=== PATIENT | male | born 1960 | race Caucasian/White ===

== ENCOUNTER 2017-07-28 19:22 | Inpatient (IN) | payer OTHER ==
[~2017-07-28] VITALS: Ht 172.7 cm; Wt 68.8 kg
[2017-07-28] MEDS ORDERED: DARU1TAB PO (19:38)
[2017-07-28] MEDS ORDERED: TAMS0.4C32 PO (19:38)
[2017-07-28] MEDS ORDERED: ACYC200C PO (19:38)
[2017-07-28] MEDS ORDERED: PROP20TA18 PO (19:38)
[2017-07-28] MEDS ORDERED: BUSP10TA23 PO (19:38)
[2017-07-28] MEDS ORDERED: GABA-531 PO (19:38)
[2017-07-28] MEDS ORDERED: TRAZ-147 PO (19:38)
[2017-07-28] MEDS ORDERED: FENO48TA15 PO (19:38)
[2017-07-28] MEDS ORDERED: QUET200T PO (19:38)
[2017-07-28 20:02] LABS: BASOPHILS % (AUTO) 0.6 % (0.0-2.0); EOSINOPHILS % (AUTO) 1.3 % (1.0-6.0); HEMATOCRIT 40.2 % (41-53); HEMOGLOBIN 14.3 g/dL (13.5-17.5); LYMPHOCYTES # (AUTO) 3.1 K/uL (1.0-4.8); LYMPHOCYTES % (AUTO) 27.8 % (22.0-44.0); MEAN CORPUSCULAR HEMOGLOBIN 32.4 pg (26.0-34.0); MEAN CORPUSCULAR HGB CONC 35.6 G/dL (31.0-37.0); MEAN CORPUSCULAR VOLUME 91 fL (80-100); MONOCYTES # (AUTO) 0.6 K/uL (0.1-1.0); MONOCYTES % (AUTO) 4.9 % (2.0-9.0); NEUTROPHILS # (AUTO) 7.4 K/uL (1.8-7.7); NEUTROPHILS % (AUTO) 65.4 % (40.0-70.0); PLATELET COUNT (AUTO) 223 K/uL (150-450); RED BLOOD CELL COUNT(AUTO) 4.42 MIL/uL (4.50-5.90); RED CELL DISTRIBUTION WIDTH 14.5 % (11.5-14.5)
[2017-07-28 20:18] LABS: ANION GAP 8 mmol/L (8-16); CALCIUM, TOTAL 9.2 mg/dL (8.8-10.5); CARBON DIOXIDE 29 mmol/L (22-29); CHLORIDE 104 mmol/L (98-107); CREATININE 1.14 mg/dL (0.60-1.30); GLOMERULAR FILTR. RATE CALC > 60 mL/min (>60); GLUCOSE,RANDOM 90 mg/dL (70-110); POTASSIUM 3.3 mmol/L (3.5-5.1); SODIUM SERUM 141 mmol/L (136-145); UREA NITROGEN, BLOOD 15 mg/dL (7-18)
[2017-07-28 20:20] LABS: AMPHET/METH SCREEN,URINE NEGATIVE (NEGATIVE); BARBITURATE SCREEN, URINE NEGATIVE (NEGATIVE); BENZODIAZEPINES SCREEN,URINE NEGATIVE (NEGATIVE); CANNABINOID SCREEN,URINE POSITIVE (NEGATIVE); COCAINE SCREEN,URINE NEGATIVE (NEGATIVE); METHADONE SCREEN, URINE NEGATIVE (NEGATIVE); OPIATE SCREEN,URINE NEGATIVE (NEGATIVE); PHENCYCLIDINE SCREEN,URINE NEGATIVE (NEGATIVE)
[2017-07-28 20:24] LABS: ALANINE AMINOTRANSFERASE 40 U/L (12-78); ALBUMIN 4.3 g/dL (3.4-5.0); ALKALINE PHOSPHATASE 93 U/L (46-116); ASPARTATE AMINOTRANSFERASE 36 U/L (15-37); BILIRUBIN,TOTAL 0.6 mg/dL (0.1-1.0); TOTAL PROTEIN, SERUM 7.1 g/dL (6.4-8.2)
[2017-07-28] MEDS ORDERED: LORazepam 2 MG TABLET PO PRN (21:15)
[2017-07-28] MEDS ORDERED: HALOPERIDOL 5 MG TABLET PO PRN (21:15)
[2017-07-28] MEDS ORDERED: ZOLPIDEM TARTRATE 10 MG TABLET PO PRN (21:15)
[2017-07-28] MEDS ORDERED: CROF125T PO (21:56)
[2017-07-28] MEDS ORDERED: DiphenhydrAMINE HCL 25 MG CAPSULE PO ONE (22:00)
[2017-07-28] MEDS ORDERED: HALOPERIDOL 5 MG TABLET PO ONE (22:00)
[2017-07-28] MEDS ORDERED: LORazepam 2 MG TABLET PO ONE (22:00)
[2017-07-28] MEDS ORDERED: POTASSIUM CHLORIDE 10% 40 MEQ/30 ML LIQUID UDCUP PO ONE (22:15)
[2017-07-28 22:32] LABS: CHOL/HDL RATIO 5.4 (4.2-7.3); CHOLESTEROL 173 mg/dL (131-200); HDL CHOLESTEROL 32 mg/dL (40-60); LDL CHOL (CALC.) 75 mg/dL (0-130); THYROID STIMULATING HORMONE 1.95 uIU/mL (0.36-3.74); TRIGLYCERIDES 328 mg/dL (15-150)
[2017-07-28 22:40] VITALS: BP 110/72
[2017-07-29 09:09] VITALS: BP 114/77
[2017-07-29] MEDS: QUEtiapine FUMARATE 200 MG TABLET PO SCH ×2 (09:30→20:17)
[2017-07-29] MEDS: BusPIRone HCL 10 MG TABLET PO SCH ×2 (09:30→18:14)
[2017-07-29] MEDS: PROPRANOLOL HCL 20 MG TABLET PO SCH ×2 (09:30→18:14)
[2017-07-29] MEDS: FLUoxetine HCL 20 MG CAPSULE PO SCH (09:30)
[2017-07-29 14:38] VITALS: BP 128/72
[2017-07-29] MEDS ORDERED: ACETAMINOPHEN 325 MG TABLET PO PRN ×2 (18:45)
[2017-07-29] MEDS ORDERED: IBUPROFEN 400 MG TABLET PO PRN (18:45)
[2017-07-29] MEDS ORDERED: POTASSIUM CHLORIDE 20 MEQ ER TABLET PO ONE (18:45)
[2017-07-29 20:12] VITALS: BP 120/71
[2017-07-29] MEDS: TraZODone HCL 100 MG TABLET PO SCH (20:17)
[2017-07-30] MEDS: FLUoxetine HCL 20 MG CAPSULE PO SCH (08:33)
[2017-07-30] MEDS: BusPIRone HCL 10 MG TABLET PO SCH ×3 (08:33→16:18)
[2017-07-30] MEDS: TAMSULOSIN HCL 0.4 MG CAPSULE PO SCH (08:33)
[2017-07-30] MEDS: ACYCLOVIR 200 MG CAPSULE PO SCH ×2 (08:33→16:17)
[2017-07-30] MEDS: PROPRANOLOL HCL 20 MG TABLET PO SCH (08:33)
[2017-07-30] MEDS: QUEtiapine FUMARATE 200 MG TABLET PO SCH ×2 (08:34→20:21)
[2017-07-30] MEDS: FENOFIBRATE 48 MG TABLET PO SCH (08:34)
[2017-07-30] MEDS ORDERED: [UNRECOGNIZED DRUG - OTHER] PO SCH (09:00)
[2017-07-30 09:18] VITALS: BP 129/74
[2017-07-30 16:51] VITALS: BP 119/61
[2017-07-30 17:10] VITALS: BP 122/65
[2017-07-30] MEDS: IBUPROFEN 400 MG TABLET PO PRN (17:10)
[2017-07-30] MEDS ORDERED: LOPERAMIDE HCL 2 MG CAPSULE PO PRN (17:15)
[2017-07-30] MEDS: TraZODone HCL 100 MG TABLET PO SCH (20:21)
[2017-07-31 08:00] VITALS: BP 96/57
[2017-07-31] MEDS: FENOFIBRATE 48 MG TABLET PO SCH (08:59)
[2017-07-31] MEDS: ACYCLOVIR 200 MG CAPSULE PO SCH ×2 (08:59→16:16)
[2017-07-31] MEDS: QUEtiapine FUMARATE 200 MG TABLET PO SCH ×2 (09:00→20:18)
[2017-07-31] MEDS: FLUoxetine HCL 20 MG CAPSULE PO SCH (09:00)
[2017-07-31] MEDS: BusPIRone HCL 10 MG TABLET PO SCH ×3 (09:00→16:16)
[2017-07-31] MEDS: TAMSULOSIN HCL 0.4 MG CAPSULE PO SCH (09:00)
[2017-07-31] MEDS: PROPRANOLOL HCL 20 MG TABLET PO SCH (09:00)
[2017-07-31 13:18] VITALS: BP 113/68
[2017-07-31] MEDS: PREZCOBIX PO SCH (16:15)
[2017-07-31] MEDS: CROFELEMER 125 MG PO SCH (16:15)
[2017-07-31 16:22] VITALS: BP 125/68
[2017-07-31] MEDS: IBUPROFEN 400 MG TABLET PO PRN (16:22)
[2017-07-31 17:37] LABS: GLUCOMETER DEV NAME(LOC) 3EX 1; GLUCOSE,POINT OF CARE 91 MG/DL (70-110)
[2017-07-31] MEDS: TraZODone HCL 100 MG TABLET PO SCH (20:18)
[2017-08-01 05:37] LABS: GLUCOMETER DEV NAME(LOC) 3EI B; GLUCOSE,POINT OF CARE 112 MG/DL (70-110)
[2017-08-01 07:08] LABS: BASOPHILS % (AUTO) 0.4 % (0.0-2.0); EOSINOPHILS % (AUTO) 1.9 % (1.0-6.0); HEMATOCRIT 39.6 % (41-53); HEMOGLOBIN 13.8 g/dL (13.5-17.5); LYMPHOCYTES # (AUTO) 2.4 K/uL (1.0-4.8); LYMPHOCYTES % (AUTO) 33.4 % (22.0-44.0); MEAN CORPUSCULAR HEMOGLOBIN 32.3 pg (26.0-34.0); MEAN CORPUSCULAR HGB CONC 34.8 G/dL (31.0-37.0); MEAN CORPUSCULAR VOLUME 93 fL (80-100); MONOCYTES # (AUTO) 0.5 K/uL (0.1-1.0); MONOCYTES % (AUTO) 6.8 % (2.0-9.0); NEUTROPHILS # (AUTO) 4.2 K/uL (1.8-7.7); NEUTROPHILS % (AUTO) 57.5 % (40.0-70.0); PLATELET COUNT (AUTO) 181 K/uL (150-450); RED BLOOD CELL COUNT(AUTO) 4.26 MIL/uL (4.50-5.90); RED CELL DISTRIBUTION WIDTH 14.6 % (11.5-14.5)
[2017-08-01] MEDS ORDERED: PANTOPRAZOLE SODIUM 40 MG DR TABLET PO SCH (09:00)
[2017-08-01] MEDS ORDERED: PRAVASTATIN SODIUM 40 MG TABLET PO SCH (09:00)
[2017-08-01] MEDS ORDERED: BENAZEPRIL HCL 20 MG TABLET PO SCH (09:00)
[2017-08-01] MEDS ORDERED: ASPIRIN 81 MG CHEWABLE TABLET PO SCH (09:00)
[2017-08-01 09:14] VITALS: BP 98/59
[2017-08-01] MEDS: PROPRANOLOL HCL 20 MG TABLET PO SCH (09:14)
[2017-08-01] MEDS: QUEtiapine FUMARATE 200 MG TABLET PO SCH (09:14)
[2017-08-01] MEDS: FLUoxetine HCL 20 MG CAPSULE PO SCH (09:15)
[2017-08-01] MEDS: ACYCLOVIR 200 MG CAPSULE PO SCH ×2 (09:15→16:07)
[2017-08-01] MEDS: CROFELEMER 125 MG PO SCH ×2 (09:16→16:07)
[2017-08-01] MEDS: FENOFIBRATE 48 MG TABLET PO SCH (09:16)
[2017-08-01] MEDS: TAMSULOSIN HCL 0.4 MG CAPSULE PO SCH (09:16)
[2017-08-01] MEDS: BusPIRone HCL 10 MG TABLET PO SCH ×3 (09:16→16:08)
[2017-08-01] MEDS: MEMANTINE HCL 10 MG TABLET PO SCH ×2 (09:17→16:06)
[2017-08-01] MEDS: PREZCOBIX PO SCH (09:18)
[2017-08-01] MEDS ORDERED: QUET200T PO ×3 (16:16→16:23)
[2017-08-01] MEDS ORDERED: TRAZ-147 PO ×2 (16:19→16:24)
[2017-08-01] MEDS ORDERED: BUSP10TA23 PO (16:19)
[2017-08-01] MEDS ORDERED: FLUO-191 PO (16:20)
[2017-08-01] MEDS ORDERED: PANT40TA25 PO (16:31)
[2017-08-01] MEDS ORDERED: PRAV40TA4 PO (16:32)
[2017-08-01] MEDS ORDERED: PROP20TA18 PO (16:34)
[2017-08-01] MEDS ORDERED: TAMS0.4C32 PO (16:36)
[2017-08-01] MEDS ORDERED: ACYC200C PO (16:37)
[2017-08-01] MEDS ORDERED: ASPI81TA39 PO (16:38)
[2017-08-01] MEDS ORDERED: BENA20 PO (16:39)
[2017-08-01] MEDS ORDERED: FENO48TA15 PO (16:39)
[2017-08-01] MEDS ORDERED: MEMA10TA11 PO (16:40)
[2017-08-01] MEDS ORDERED: CROF125T PO (16:42)
== END 2017-08-01 19:45 | disposition home or self-care (01) | DRG 885 ==
LOC: EMS 19:28 → AHU 21:59 → 3EI 07-29 14:17 → 3EX 07-29 18:15
PROVIDERS: ADMIT Psychiatry & Neurology Psychiatry; ATTEND Psychiatry & Neurology Psychiatry
DX: F25.9 Schizoaffective disorder, unspecified (principal); R45.851 Suicidal ideations; E78.5 Hyperlipidemia, unspecified; E87.6 Hypokalemia; R45.87 Impulsiveness; F99 Mental disorder, not otherwise specified; F19.10 Other psychoactive substance abuse, uncomplicated; K52.9 Noninfective gastroenteritis and colitis, unspecified; N40.0 Benign prostatic hyperplasia without lower urinary tract symptoms; Z79.899 Other long term (current) drug therapy; Z81.8 Family history of other mental and behavioral disorders; Z91.5 Personal history of self-harm; Z88.2 Allergy status to sulfonamides
CPT/HCPCS: 82962; 83036; 84443; 86361; G0480